=== PATIENT | female | born 1960 | race Caucasian/White ===

== ENCOUNTER 2020-08-03 14:12 | Outpatient (CLI) | payer OTHER ==
[~2020-08-03 14:12] MED LIST: Magnevist 469MG/ML 20 ML VIAL ONE
[2020-08-03 14:49] LABS: Estimated GFR-MDRD - POC Greater than 90
--- NOTE | 2020-08-03 15:51 | MRI ---
MRI CERVICAL SPINE WITH AND WITHOUT CONTRAST: INDICATION: Cervical spinal stenosis. FINDINGS: The exam is degraded due to artifact. The patient had persistent cough during the exam producing mot ion artifact. The cervical vertebrae maintain height and alignment. Disk spaces are preserved. Degenerative spurr ing from the cervical vertebrae. Posterior spondylosis at multiple levels. C2-3: No significant disk bulge or spondylitic change. C3-4: Posterior disk bulge and spondylosis efface the anterior subarachnoid space. Mild foraminal n arrowing secondary to uncinate hypertrophy. C4-5: Mild disk bulge and spondylosis efface the anterior subarachnoid space without significant cor d impingement. Right foraminal stenosis due to facet and uncinate hypertrophy. Mild left foraminal stenosis. C5-6: Disk bulge and spondylosis impinge on a mildly compressed anterior cord. Bilateral foraminal narrowing due to facet and uncinate hypertrophy. C6-7: Disk bulge and spondylosis abuts the anterior cord. No significant foraminal stenosis. C7-T1: No significant abnormality. Cord signal appears normally preserved. IMPRESSION: Posterior disk bulge and spondylosis at C3-4, C4-5, C5-6, and C6-7 as described above. There is mild cord compression at C5-6. There are changes of both the anterior cord at C6-7 as noted above. POS: OFF
== END 2020-08-03 14:13 | disposition home or self-care (01) ==
LOC: BICMRI 14:12
PROVIDERS: ATTEND Nurse Practitioner Family
DX: M48.02 Spinal stenosis, cervical region (principal); M47.812 Spondylosis without myelopathy or radiculopathy, cervical region; M50.81 Other cervical disc disorders, high cervical region; G95.29 Other cord compression
CPT/HCPCS: 72156; 82565; A9579

== ENCOUNTER 2022-06-23 13:29 | Outpatient (CLI) | payer OTHER | END 2022-06-23 13:30 | disposition home or self-care (01) | LOC: MRI 13:29 | PROVIDERS: ATTEND Registered Nurse Community Health | DX: M54.31 Sciatica, right side (principal); M25.473 Effusion, unspecified ankle | CPT/HCPCS: 72148; 93970 ==

== ENCOUNTER 2022-08-11 11:07 | Outpatient (CLI) | payer OTHER | END 2022-08-11 11:08 | disposition home or self-care (01) | LOC: RAD 11:07 | PROVIDERS: ATTEND Nurse Practitioner Family | DX: M25.551 Pain in right hip (principal); M25.552 Pain in left hip ==

== ENCOUNTER 2022-11-30 10:00 | Outpatient (CLI) | payer OTHER | END 2022-11-30 10:01 | disposition home or self-care (01) | LOC: MRI 10:00 | PROVIDERS: ATTEND Nurse Practitioner Family | DX: M48.02 Spinal stenosis, cervical region (principal); M47.812 Spondylosis without myelopathy or radiculopathy, cervical region | CPT/HCPCS: 72141 ==

== ENCOUNTER 2022-12-22 08:58 | Outpatient (CLI) | payer OTHER | END 2022-12-22 08:59 | disposition home or self-care (01) | LOC: BICCT 08:58 | PROVIDERS: ATTEND Nurse Practitioner Family | DX: K22.89 Other specified disease of esophagus (principal); R91.8 Other nonspecific abnormal finding of lung field; R59.0 Localized enlarged lymph nodes | CPT/HCPCS: 70491; 82565 ==

== ENCOUNTER 2023-02-06 08:09 | Day surgery (SDC) | payer OTHER ==
[2023-02-02 14:04] VITALS: BMI 24.2
[2023-02-06] MEDS ORDERED: Lidocaine 1% MPF 2 ML VIAL ONE (09:18)
[2023-02-06] MEDS ORDERED: Ipratropium/Albuterol 3 ML NEB ONE ×2 (09:19→12:49)
[2023-02-06] MEDS ORDERED: fentaNYL PF 100 MCG/2 ML SYRINGE ONE (09:51)
[2023-02-06] MEDS ORDERED: SUGAMMADEX SODIUM 200 MG/2 ML VIAL ONE (09:51)
[2023-02-06] MEDS ORDERED: fentaNYL 50 mcg/mL 1 mL Vial ONE ×5 (10:08→12:57)
[2023-02-06] MEDS ORDERED: Midazolam HCl 2 mg/2 ml Vial ONE (10:25)
[2023-02-06] MEDS ORDERED: Phenylephrine 10 MG/ML VIAL ONE (10:30)
[2023-02-06] MEDS ORDERED: PROPOFOL 200 MG/20 ML VIAL ONE (10:30)
[2023-02-06] MEDS ORDERED: Ondansetron PF 4 MG/2 ML Vial ONE (10:30)
[2023-02-06] MEDS ORDERED: Lidocaine 1% PF 5 ML VIAL ONE (10:30)
[2023-02-06] MEDS ORDERED: Dexamethasone 20 MG/5 ML VIAL ONE (10:30)
[2023-02-06] MEDS ORDERED: Rocuronium Bromide 10 MG/ML (10ML VIAL) ONE (10:30)
[2023-02-06] MEDS ORDERED: Pantoprazole 40 MG VIAL IVP SCH (10:30)
[2023-02-06] MEDS ORDERED: KETAMINE 100 MG/ML (5ML VIAL) ONE (10:37)
[2023-02-06] MEDS ORDERED: HYDROcodone/Acetaminophen 5/325 mg Tablet ONE (14:23)
== END 2023-02-06 16:53 | disposition home or self-care (01) ==
LOC: SDC 08:09
PROVIDERS: ATTEND Internal Medicine
PROC: 0BBC8ZX Excision of Right Upper Lung Lobe, Via Natural or Artificial Opening Endoscopic, Diagnostic (ICD-10-PCS; principal; 2023-02-06)
PROC: 0B9C8ZX Drainage of Right Upper Lung Lobe, Via Natural or Artificial Opening Endoscopic, Diagnostic (ICD-10-PCS; principal; 2023-02-06)
PROC: 07974ZX Drainage of Thorax Lymphatic, Percutaneous Endoscopic Approach, Diagnostic (ICD-10-PCS; principal; 2023-02-06)
DX: C34.11 Malignant neoplasm of upper lobe, right bronchus or lung (principal); R59.0 Localized enlarged lymph nodes; J44.9 Chronic obstructive pulmonary disease, unspecified; F17.210 Nicotine dependence, cigarettes, uncomplicated; Z79.1 Long term (current) use of non-steroidal anti-inflammatories (NSAID); Z88.5 Allergy status to narcotic agent; Z88.8 Allergy status to other drugs, medicaments and biological substances
CPT/HCPCS: 88112; 88173; 88305; 88341; 88342; C9113; J1100; J2250; J2370; J2405; J2704; J3010; J7620

== ENCOUNTER 2023-02-08 07:26 | Outpatient (CLI) | payer OTHER | END 2023-02-08 07:27 | disposition home or self-care (01) | LOC: MRI 07:26 | PROVIDERS: ATTEND Nurse Practitioner Family | DX: M51.16 Intervertebral disc disorders with radiculopathy, lumbar region (principal) | CPT/HCPCS: 72148 ==

== ENCOUNTER 2023-02-10 11:41 | Emergency (ER) | payer OTHER ==
[2023-02-10] MEDS ORDERED: HYDROcodone/Acetaminophen 10/325 mg Tablet ONE (13:41)
== END 2023-02-10 14:00 | disposition home or self-care (01) ==
LOC: ERS 11:41
DX: M25.50 Pain in unspecified joint (principal); G89.29 Other chronic pain; F17.210 Nicotine dependence, cigarettes, uncomplicated
CPT/HCPCS: 99283

== ENCOUNTER 2023-05-24 09:32 | Outpatient (CLI) | payer OTHER | END 2023-05-24 09:33 | disposition home or self-care (01) | LOC: RAD 09:32 | PROVIDERS: ATTEND Internal Medicine Geriatric Medicine | DX: R91.8 Other nonspecific abnormal finding of lung field (principal); C34.11 Malignant neoplasm of upper lobe, right bronchus or lung; C77.9 Secondary and unspecified malignant neoplasm of lymph node, unspecified | CPT/HCPCS: 70553; 78815; A9552; A9579 ==